=== PATIENT | male | born 1985 | race Caucasian/White ===

== ENCOUNTER 2018-02-06 18:29 | Emergency (ER) | payer OTHER ==
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
[2018-02-06 19:51] VITALS: BP 118/81
== END 2018-02-06 19:50 | disposition home or self-care (01) ==
LOC: ER 18:29
DX: S09.90XA Unspecified injury of head, initial encounter (principal); R11.0 Nausea; R51 Headache; V87.7XXA Person injured in collision between other specified motor vehicles (traffic), initial encounter
CPT/HCPCS: 70450; 99284

== ENCOUNTER 2019-02-09 16:17 | Emergency (ER) | payer OTHER ==
[2019-02-09 16:23] VITALS: BP 138/84
[2019-02-09] MEDS ORDERED: LIDOCAINE 1% INJ-PF (10 MG/ML) 30 ML SDV INJ ONE (17:07)
--- NOTE | 2019-02-09 17:07 | ER Document Report ---
HPI - HPI Patient complains to provider of: forearm laceration Time Seen by Provider: 02/09/19 17:01 Onset: Just prior to arrival Onset/Duration: Sudden Quality of pain: No pain Context: 33-year-old male presents emergency department with laceration to his right forearm. Reports he cut himself working on some metal. Not sure when his last tetanus was. Denies pain. Declines Tylenol Motrin. Patient has a 3 cm laceration to the right forearm no active bleeding Associated Symptoms: None Exacerbated by: Denies Relieved by: Denies Similar symptoms previously: No Recently seen / treated by doctor: No - REPRODUCTIVE Reproductive: DENIES: : Past Medical History - General Information source: Patient - Social History Smoking Status: Unknown if Ever Smoked Cigarette use (# per day): No Frequency of alcohol use: Social Drug Abuse: None Family History: Reviewed & Not Pertinent Patient has suicidal ideation: No Patient has homicidal ideation: No - Medical History Medical History: Negative Renal/ Medical History: Denies: Hx Peritoneal Dialysis Surgical Hx: Negative - Immunizations Immunizations up to date: Yes Vertical Provider Document - CONSTITUTIONAL Agree With Documented VS: Yes Exam Limitations: No Limitations General Appearance: WD/WN, No Apparent Distress - INFECTION CONTROL TRAVEL OUTSIDE OF THE [place] IN LAST 30 DAYS: No - HEENT HEENT: Atraumatic, Normocephalic - NECK Neck: Supple - RESPIRATORY Respiratory: No Respiratory Distress - CARDIOVASCULAR Cardiovascular: Regular Rate - MUSCULOSKELETAL/EXTREMETIES Musculoskeletal/Extremeties: MAEW, FROM, Non-Tender - NEURO Level of Consciousness: Awake, Alert, Appropriate Motor/Sensory: No Motor Deficit - DERM Integumentary: Warm, Dry, Laceration - 3 cm linear laceration to the right forearm no active bleeding Course - Vital Signs Vital signs: Temp Pulse Resp BP Pulse Ox 98.0 F 99 16 138/84 H 98 02/09/19 16:21 02/09/19 16:21 02/09/19 16:21 02/09/19 16:21 02/09/19 16:21 Procedures - Laceration/Wound Repair Right forearm Time completed: 17:49 Wound length (cm): 3 Wound's Depth, Shape: Superficial Laceration pre-procedure: Sterile drapes applied, Shur-Clens applied Anesthetic type: 1% Lidocaine Volume Anesthetic (mLs): 2 Irrigated w/ Saline (mLs): 250 Wound Repaired With: Sutures Suture Size/Type: 5:0, Nylon Number of Sutures: 5 Layer Closure?: No Discharge - Discharge Clinical Impression: Laceration Condition: Stable Disposition: HOME, SELF-CARE Instructions: Antibiotic Ointment Protection ([facility]), Laceration Care ([facility]), Soap Cleansing ([facility]), Tetanus Immunization Given ([facility]) Additional Instructions: *You have been treated for a laceration on your right forearm with suture repair *Monitor the site for signs of infection such as pain, redness, swelling, warmth *Keep the area clean *Return to the emergency department in 10 days for suture removal *Return to ED earlier for signs of infection, worsening condition, concerns, changes, needs Monitor your blood pressure. Your blood pressure was elevated today. This may be because you were anxious, in pain or because you need medication. It is important to follow up with your primary care provider for full evaluation. Forms: Elevated Blood Pressure
[2019-02-09] MEDS ORDERED: DIPH/PERTUSS(ACELL)/TETANUS VAC/PF 0.5 ML SYR (>=10YO) IM ONE (17:55)
== END 2019-02-09 18:10 | disposition home or self-care (01) ==
LOC: ER 16:17
DX: S51.811A Laceration without foreign body of right forearm, initial encounter (principal); W26.8XXA Contact with other sharp object(s), not elsewhere classified, initial encounter; Z23 Encounter for immunization
CPT/HCPCS: 99282; 90471; 90715; 12002; J3490